=== PATIENT | female | born 1985 | race Caucasian/White ===

== ENCOUNTER → 2021-07-13 10:49 | Outpatient (CLI) | payer OTHER, SELFPAY ==
[2021-07-13 11:06] LABS: Absolute Lymphocyte Count 1.67 X10^3/uL (0.83-4.51); Absolute Neutrophil Count 7.7 X10^3/uL (2.0-7.7); Basophil# 0.06 X10^3/uL; Basophil% 0.6 % (0-1); Eosinophil# 0.15 X10^3/uL; Eosinophils% 1.4 % (0-5); Hematocrit 37.3 % (37-47); Hemoglobin 12.5 g/dL (12.0-15.0); Lymphocyte # 1.67 X10^3/ul (0.83-4.51); Lymphocyte % 15.9 % (19-41); Mean Corp Hgb Conc 33.5 g/dL (32-36); Mean Corpuscular Hgb 32.6 pg (27.0-32.0); Mean Corpuscular Volume 97.4 fL (81-99); Mean Platelet Vol. 10.3 fl (6.2-12.0); Monocyte# 0.78 X10^3/uL; Monocyte% 7.4 % (0-10); NRBC Flagged by Analyzer 0 % (0-5); Neutrophil # 7.65 X10^3/uL (2.7-7.7); Neutrophil % 72.7 % (47-70); Platelet Count 189 K/mm3 (150-450); RBC Distribution Width SD 46.2 fl (35.1-43.9); Red Blood Count 3.83 M/mm3 (4.2-5.4); White Blood Count 10.5 K/mm3 (4.4-11.0)
== END ==
PROVIDERS: PCP Nurse Practitioner Family; Referring Provider Obstetrics & Gynecology; Visit Provider Obstetrics & Gynecology
DX: O34.219 Maternal care for unspecified type scar from previous cesarean delivery (principal); Z3A.00 Weeks of gestation of pregnancy not specified
CPT/HCPCS: 36415; 85025; 86850; 86900; 86901

== ENCOUNTER → 2021-07-26 10:12 | Outpatient (CLI) | payer OTHER, SELFPAY | PROVIDERS: PCP Nurse Practitioner Family; Visit Provider Nurse Practitioner Women's Health | DX: Z34.93 Encounter for supervision of normal pregnancy, unspecified, third trimester (principal) | CPT/HCPCS: 87086; 87088 ==

== ENCOUNTER 2021-08-25 09:46 | Outpatient (CLI) | payer OTHER, SELFPAY ==
--- NOTE | 2021-08-25 09:48 | US_ITS ---
STUDY: SECOND AND THIRD TRIMESTER OBSTETRICAL ULTRASOUND - LIMITED REASON FOR EXAM: Female, 36 years old placenta follow-up LMP: 12/12/2020. PRIOR ULTRASOUND: None. TECHNIQUE: Transabdominal and Transvaginal TECHNICAL QUALITY: Adequate. FINDINGS: There is a single intrauterine fetus. The fetus is in a cephalic presentation. There is demonstrated cardiac activity with a heart rate of 148 bpm. There is decreased amniotic fluid volume consistent with oligohydramnios. The largest amniotic fluid pocket measures 2.6 cm. The amniotic fluid index (KAR) is 4.8 cm. The placenta is posterior in location and is not low lying. The tip of the placenta is a 2.4 cm away from the internal os. There are Grade 2 placental changes. The cervix measures 4.74 cm in length. BIOMETRY: Age by LMP: 36 weeks, 4 days. CONSTANCE by LMP: 09/18/2021. US/OB Limited (No Biometrics) IMPRESSION: Decreased amniotic fluid index. The referring physician was notified. Electronically Signed: Phillip Garay MD at 13:32 EST , Service support ,
== END 2021-08-25 23:59 | disposition short-term general hospital (02) ==
PROVIDERS: PCP Physician Assistant; Referring Provider Obstetrics & Gynecology; Visit Provider Obstetrics & Gynecology
DX: O44.02 Complete placenta previa NOS or without hemorrhage, second trimester (principal); Z3A.00 Weeks of gestation of pregnancy not specified
CPT/HCPCS: 76815; 76817; J2405

== ENCOUNTER 2021-08-25 10:59 | Inpatient (IN) | payer OTHER, SELFPAY ==
[2021-08-25] VITALS (15 sets, daily range): BP systolic 114–140; BP diastolic 71–91; PULSE 71–95; RESP 12–18; TEMP 36.1–36.6; O2SAT 94–100; BMI 32.5
[2021-08-25] MEDS: Lactated Ringers 1,000 ML 150 ML IV (12:10)
[2021-08-25 12:38] LABS: Absolute Lymphocyte Count 2.07 X10^3/uL (0.83-4.51); Absolute Neutrophil Count 8.6 X10^3/uL (2.0-7.7); Basophil# 0.05 X10^3/uL; Basophil% 0.4 % (0-1); Eosinophil# 0.12 X10^3/uL; Hematocrit 35.1 % (37-47); Hemoglobin 11.7 g/dL (12.0-15.0); Lymphocyte # 2.07 X10^3/ul (0.83-4.51); Lymphocyte % 16.4 % (19-41); Mean Corp Hgb Conc 33.3 g/dL (32-36); Mean Corpuscular Hgb 31.7 pg (27.0-32.0); Mean Corpuscular Volume 95.1 fL (81-99); Mean Platelet Vol. 10.1 fl (6.2-12.0); Monocyte# 1.48 X10^3/uL; Monocyte% 11.7 % (0-10); NRBC Flagged by Analyzer 0 % (0-5); Neutrophil # 8.62 X10^3/uL (2.7-7.7); Neutrophil % 68.4 % (47-70); Platelet Count 225 K/mm3 (150-450); RBC Distribution Width SD 45.2 fl (35.1-43.9); Red Blood Count 3.69 M/mm3 (4.2-5.4); White Blood Count 12.6 K/mm3 (4.4-11.0)
--- NOTE | 2021-08-25 13:05 | PCM.HP.STD ---
HPI - General General Date of Admission: 08/25/21 HPI Narrative MARGIE HATHAWAY, is a 36 F who presents for repeat section. She was diagnosed with a previa on 08/03/2021 and today scan shows resolution but with Oligohydramnios of 4.6 cm. She received 2 dosed of celestone this week. The plan is for a repeat section today. [facility] Medical History Complete placenta previa nos or without hemorrhage, second trimester Home Medications vitamin#30 30 mg iron-10 mg iron-folic acid 1 mg-omg3 capsule cap PO 04/12/21 [History Last Taken Unknown] betamethasone acetate and sodium phos 6 mg/mL suspension for injection 12 mg IM ONCE #5 ml 08/17/21 [Rx Last Taken Unknown] Allergy/AdvReac Type Severity Reaction Status Date / Time morphine Allergy Shortness Verified 08/17/21 09:40 of breath hydromorphone HCl AdvReac Itching Verified 08/17/21 09:40 [From Dilaudid] Family History Father Diabetes Mother H/O parathyroid disease Surgical History delivery delivered H/O LEEP History of cholecystectomy Hx of tonsillectomy Social History Smoking Status: Never smoker alcohol intake: never substance use type: does not use caffeine: Yes what type of physical activity do you participate in: none seatbelt use: always do you feel safe at home: Yes additional social history: - Syd- New traveling construction superintendent ROS Constitutional Constitutional: Denies change in weight, fatigue, fever(s), headache(s), poor appetite or weakness Eyes Eyes: Denies blurry vision, change in vision, seeing flashes or spots in vision ENT HEENT: Denies dizziness, headache(s), loss taste/smell or sore throat Cardiovascular Cardiovascular: Denies chest pain, dizziness, dyspnea, irregular heart rhythm, leg edema, palpitations, rapid heart rate or vomiting Respiratory/Chest Respiratory/Chest: Denies chest tightness, cough, dyspnea or breast pain Gastrointestinal Gastrointestinal: Denies abdominal pain, anorexia, constipation, cramping, diarrhea, hemorrhoids, vomiting or weight changes Genitourinary Genitourinary: Denies dysuria, flank pain, genital lesions, genital pain, urinary frequency or urinary urgency Musculoskeletal Musculoskeletal: Denies back pain, difficulty walking, joint pain, limited range of motion, muscle cramps or numbness Integumentary Integumentary: Denies lesions or unusual bruising Neurologic Neurologic: Denies abnormal movements, abnormal speech, dizziness, numbness, seizure-like activity or syncope Psychiatric Psychiatric: Denies anxiety, behavioral changes, change in appetite, change in libido, cognitive impairment, confusion, depression, difficulty concentrating, hallucinations or suicidal thoughts Endocrine Endocrinology: Denies excessive sweating, polydipsia or polyuria Hematologic/Lymphatic Hematologic/Lymphatic: Denies easy bleeding, easy bruising or lymphadenopathy Allergic/Immunologic Allergic/Immunologic: Denies itchy eyes, lip swelling, seasonal rhinorrhea, rhinitis, throat swelling, tongue swelling, eczemia, wheezing or asthma Vital Signs Vital Signs Vital Signs: Weight Weight: 202 lb Body Mass Index (BMI) 32.5 Physical Exam Const alert, oriented x3, no apparent distress and healthy appearing General Appearance: cooperative; Negative for anxious HEENT normocephalic Face and Sinus: normal facial exam Eyes EOMs intact bilaterally and no scleral icterus General Eye: normal appearance of both eyes Neck full ROM and supple Lymph Lymphatic: no lymphadenopathy noted Chest Chest: abnormal inspection of the chest Resp normal respiratory effort Effort and Inspection: able to speak in complete sentences Cardio regular rate GI soft to palpation and non-tender Inspection: gravid Palpation: soft; Negative for tender external exam normal Amniotic Fluid: ROM+plus Back/Spine no CVA tenderness Extremity normal to inspection, full ROM and no clubbing, cyanosis or edema General Extremity: Negative for calf tenderness or edema Skin Lesions: no lesions Rashes: no rashes Psych mental status grossly normal Results Lab / Micro Data Result Diagrams: 08/25/21 12:10 Labs: Laboratory Results - last 24 hr 08/25/21 12:10: WBC 12.6 H, RBC 3.69 L, Hgb 11.7 L, Hct 35.1 L, MCV 95.1, MCH 31.7, MCHC 33.3, RDW Std Deviation 45.2 H, RDW Coeff of Alyce 13.0, Plt Count 225, MPV 10.1, Immature Gran % (Auto) 2.100 H, Neut % (Auto) 68.4, Lymph % (Auto) 16.4 L, [place] % (Auto) 11.7 H, Eos % (Auto) 1.0, Baso % (Auto) 0.4, Absolute Neuts (auto) 8.6 H, Absolute Lymphs (auto) 2.07, Nucleated RBC % 0 08/25/21 12:50: Ur Drug Screen Comment Assessment & Plan Assessment/Plan (1) Oligohydramnios: PLAN: plan for repeat section today. Plan to use exparel + bupivocaine as a block to help with post op pain control. (2) Previous section complicating : (3) Supervision of high risk , antepartum:
[2021-08-25 13:15] LABS: Amphetamine Urine VISTA NEGATIVE (<1000 ng/mL); Barbiturate Urine VISTA NEGATIVE (< 200 ng/mL); Benzodiazepine Urine VISTA NEGATIVE (< 200 ng/mL); Cocaine Urine VISTA NEGATIVE (< 300 ng/mL); Ecstacy Urine VISTA NEGATIVE (< 500 ng/mL); Methadone Urine VISTA NEGATIVE (< 300 ng/mL); PCP Urine VISTA NEGATIVE (< 25 ng/mL); THC Urine VISTA NEGATIVE (< 50 ng/mL); Vista UDS pH Range 7
[2021-08-25 13:31] LABS: Rubella IgG Reactive (Nonreactive); Syphilis Antibodies Non-reactive
[2021-08-25 13:41] LABS: HIV - WCH Non-Reactive (Nonreactive); Hepatitis B Surface Antigen Non-Reactive (Nonreactive); Hepatitis C Antibody Non-Reactive (Nonreactive)
[2021-08-25] MEDS: Acetaminophen 500 MG Tablet 1000 MG PO (15:05)
[2021-08-25] MEDS: Lactated Ringers 1,000 ML 999 ML IV (15:06)
[2021-08-25 15:12] LABS: Chlamydia Trachomatis by PCR Negative (Negative); Neisserai gonorrhoeae by PCR Negative (Negative); Probe Check PASS; Sample Adequacy Control PASS; Specimen Processing Control PASS
[2021-08-25] MEDS: Sodium Citrate/Citric Acid 30 ML UDC PO (16:10)
[2021-08-25] MEDS: Cefazolin 2 GM in 0.9% Normal Saline 100 ML IV (16:15)
[2021-08-25] MEDS: Bupivacaine 0.25% 30 ML Vial OPERA.SITE (17:30)
[2021-08-25] MEDS: BUPIVACAINE LIPOSOME/PF 20 ML VIAL OPERA.SITE (17:30)
--- NOTE | 2021-08-25 17:34 | OP.PCM_ITS ---
Assessment & Plan (1) Previous section complicating : COMMENT: marginal placenta previa. discussed with patient we will not p jayde nino for a home . CS scheduled (2) Oligohydramnios: (3) Supervision of high risk , antepartum: COMMENT: PRR (sp labs) CONSTANCE 09/18/21 Boy PC:Bernard Nina Naomi, [place].Spouse:Syd Maternal Data Information CONSTANCE Calculator Estimated Delivery Date Method Current WG Current Estimate 09/18/21 LMP (Uncertain) 36w 4d Details Operative Information Date of Procedure: 08/25/21 Pre-Operative Diagnosis: @ 36 weeks, Oligohydramnios, prior section, desires permanent sterilization Post-Operative Diagnosis: @ 36 weeks, Oligohydramnios, prior section, desires permanent sterilization Indications for : Repeat Elective Classification: Scheduled Procedure Type: tubal ligation Type of Anesthesia: Epidural Special Medications: Exparel and bupivacaine intramuscular and subfascial injection Antibiotic Given: Ancef 2 grams IV x1 Estimated Blood Loss: 500cc Fluids Replaced: 1000cc Findings Description of Procedure: The patient is a 36 y/o with one prior section and and KAR of 4.8 (oligohydramnios) she presented for repeat . Spinal anesthesia was placed without difficulty. Song catheter was placed. The patient was placed in the dorsal supine position with leftward tilt. Patient was prepped and draped in the normal sterile fashion. Pfannenstiel skin incision was made with the scalpel and carried through to the underlying layer of fascia with the scalpel. Fascia was nicked in the midline and the incision extended laterally. The rectus bellies were dissected off superiorly and inferiorly with out complication both sharply and bluntly. The peritoneum was entered digitally. The incision was stretched and a low transverse uterine incision was made with the scalpel. The 's head was delivered atraumatically followed by the anterior and posterior shoulders without complication the rest of the delivered. The cord was clamped and cut and the infant was handed off to awaiting nurse. The placenta was delivered spontaneously immediately following and was noted to be intact and have a three-vessel cord. The uterus was exteriorized cleared of all clots and debris, and the incision was closed in a double layer closure using #1 Monocryl. The ovaries and fallopian tubes were noted to be within normal limits. The tubal ligation procedure was performed using the usual parkland method and 2-0 plain gut suture. The tubal portions were passed off for pathology analysis. The uterus was returned to the maternal abdomen and gutters were cleared of all clots and debris. The peritoneum was closed with 3-0 Monocryl in a running fashion. Gloves were changed prior to fascial closure. The rectus muscles were injected with a 60cc mixture of bupivacaine and Exparel. The Fascia was closed with 0 PDS stratafix suture in a running fashion. Subcutaneous tissue was copiously irrigated and the skin was closed with 3-0 Monocryl in a subcuticular fashion. Mepilex dressing was applied without complication. Patient was taken to recovery in stable condition. It was discussed with the patient that based on the clinical information obtained during this encounter, combined with her history, at this time I would recommend for future deliveries if further pregnancies are desired. Presentation: Positive for Vertex Amniotic Membrane Rupture Type: Artificial Amniotic Fluid Description: Clear Placental Delivery Description: Manual Removal Placenta Disposition: [facility] Cord Vessel Description: 3 Vessels Cord Entanglement: None Infant A Gender: Male (1 minute): 8 (5 minute): 9 Delayed Cord Clamping: Yes Complications Risks of Surgery Discussed w/Patient: Injury to surrounding structure(s) including bowel and bladder and Availability of other non-permanent control options Multi Select Codes Urinary/Genital Urinary/Genital CPT Codes: 23947 C/S+TL
[2021-08-25] MEDS: Oxytocin 30 units/NS 500 ml 30 UNITS/500 ML IV.SOLN 167 UNITS IV (17:40)
--- NOTE | 2021-08-25 17:45 | FALS_PTH ---
PATIENT: MARGIE HATHAWAY LOC: [facility] U#:[id number] AGE/SX: 36/F ROOM: WP007 RE08/25/[address]: Dr. Yina Marcus DO : 1985 BED: 1 DIS: 08/28/2021 SPEC #: [id number] RECD: 08/25/21 18:36 STATUS: SRAVANI GERONIMO #: [id number] MATILDE: 08/25/21 17:[address]: Yina Marcus DEPT: SURGICAL PATHOLOGY RECD BY: Shelia Johnson ENTERED: 08/28/21 09:41 SP TYPE: FALL TUBES OTHR DR: Russell Mulligan PA-C Tissues: Fallopian tube Procedures: Surgery Specimen Level II HEADER OPERATION: Tubal ligation PRE-OP DIAGNOSIS: Sterilization TISSUE SUBMITTED: Fallopian tubes MICROSCOPIC DIAGNOSIS Bilateral fallopian tubes, salpingectomy: Bilateral fallopian tubes, no pathologic diagnosis. SJ:gt 08/29/2021 MICROSCOPIC DESCRIPTION Slides are reviewed. GROSS DESCRIPTION Received in fixative is one container labeled with the patient's name and designated bilateral fallopian tubes. The specimen consists of two fallopian tubes with an average length of 2.5 cm and has an average diameter of 0.7 cm. Both fallopian tubes have normal fimbriated ends. No mass lesions are identified. Project Program Manager sections are submitted in two cassettes as follows: 1 - one fallopian tube, 2??the other fallopian tube. / AM:gt 08/28/2021 TC:4 CPT: 82116 x2
[2021-08-25] MEDS: Ketorolac 30 MG/ML Syringe IV (18:15)
--- NOTE | 2021-08-25 19:24 | NURSING ---
Report given to Roselia Mora RN.
[2021-08-25] MEDS: oxyCODONE 5 MG Tablet PO (19:50)
[2021-08-25] MEDS: Methylergonovine 0.2 MG/ML Ampul IM (20:05)
[2021-08-25 20:06] LABS: Pathology Specimen OB SEE PATHOLOGY REPORT
[2021-08-25] MEDS: Carboprost Tromethamine 250 MCG/ML Ampul IM ×3 (20:30→21:33)
[2021-08-25] MEDS: Oxytocin 30 units/NS 500 ml 30 UNITS/500 ML IV.SOLN 999 UNITS IV (20:47)
[2021-08-25] MEDS: miSOPROStol 200 MCG Tablet 1000 MCG RC ×2 (21:15)
[2021-08-25 21:23] LABS: Absolute Lymphocyte Count 2.89 X10^3/uL (0.83-4.51); Absolute Neutrophil Count 13.9 X10^3/uL (2.0-7.7); Basophil# 0.06 X10^3/uL; Basophil% 0.3 % (0-1); Eosinophil# 0.15 X10^3/uL; Eosinophils% 0.8 % (0-5); Hematocrit 31.4 % (37-47); Hemoglobin 10.5 g/dL (12.0-15.0); Lymphocyte # 2.89 X10^3/ul (0.83-4.51); Lymphocyte % 15.3 % (19-41); Mean Corp Hgb Conc 33.4 g/dL (32-36); Mean Corpuscular Hgb 31.6 pg (27.0-32.0); Mean Corpuscular Volume 94.6 fL (81-99); Mean Platelet Vol. 10.3 fl (6.2-12.0); Monocyte# 1.68 X10^3/uL; Monocyte% 8.9 % (0-10); NRBC Flagged by Analyzer 0 % (0-5); Neutrophil # 13.86 X10^3/uL (2.7-7.7); Neutrophil % 73.4 % (47-70); POSITIVE DIFFERENTIAL YES; Platelet Count 204 K/mm3 (150-450); RBC Distribution Width CV 12.9 % (11.6-14.6); RBC Distribution Width SD 44.6 fl (35.1-43.9); Red Blood Count 3.32 M/mm3 (4.2-5.4); White Blood Count 18.9 K/mm3 (4.4-11.0)
[2021-08-25 21:29] LABS: International Normalized Ratio 1.1; Partial Thromboplast Time 29.8 Seconds (24.1-36.2); Prothrombin Time (Protime)PT. 13.8 SECONDS (11.7-14.9)
[2021-08-25 21:44] LABS: Differential Indicated SCAN CRITERIA MET
[2021-08-25 22:00] LABS: Hematocrit 26.6 % (37-47); Hemoglobin 8.7 g/dL (12.0-15.0)
[2021-08-25 22:00] LABS: Fibrinogen 384 mg/dl (203-444)
[2021-08-25 22:08] LABS: Differential Comment SCANNED
[2021-08-25] MEDS: Lactated Ringers 1,000 ML 100 ML IV (22:10)
--- NOTE | 2021-08-25 22:15 | PCM.OPRPT ---
Report of Operation Date of Procedure: 08/25/21 Pre-Operative Diagnosis: hemorrhage Post-Operative Diagnosis: hemorrhage Surgery/Procedure Performed:: dilation and curettage Surgeon: Neo Type of Anesthesia: MAC Specimen's removed: Blood clots Estimated Blood Loss (mL): 1500 cc Description of Procedure: Nursing called with concerns for bleeding after surgery. She has a total of 650cc of blood on a pad on a weight as I entered the room. Upon examining the uterus there was noted to be clots within the os. the cervix was dilated only 2 cm. The decision was made to bring her to the OR for a Dilation and curettage with placement of Barkeri balloon. The patient's legs were placed in stirrups the perineum was prepped and draped in the usual sterile fashion. The vault was also prepped with Betadine. A weighted speculum was placed in the vagina. The cervix was grasped with a long Allis clamp. Sharp curettage was performed removing another approximately 300 cc of blood and clot. The suction device was attached and a suction curettage was then performed. At this time a total of 1500 cc was noted to be lost from the time of surgery. A Jose balloon was placed into the uterus and insufflated with approximately 300 cc of normal saline. An Ultrasound was performed and the Jose balloon was noted to be in the lower uterine segment. Slight oozing was continued to be noted around the Jose balloon. An attempt was made to replace the balloon to the fundus by removing some of the fluid and pushing the balloon farther up to the fundus. This was done under ultrasound guidance as the fluid was reinflated into the balloon and the balloon again pushed its way down into the lower uterine segment were bleeding continued. The balloon was removed completely at this time and uterine massage was performed. Ultrasound showed a thin endometrium with very little particulate left within the uterine cavity. At this time bleeding ceased on its own. During this procedure the patient was given 2 doses of TXA, 1000 mg of Cytotec, and several doses of Hemabate. She was also given a dose of Methergine. 2 bags of Pitocin were used during the procedure. Patient's hemoglobin started at 10.5 as we entered the operating room and after the procedure was finished and the bleeding was stopped her hemoglobin was at 8.7. Admit VTE Documentation VTE Present on Admission: Yes VTE Mechan Device Prophylaxis: SCD's VTE Pharm Prophylaxis ordered?: Yes Multi Select Codes Urinary/Genital Urinary/Genital CPT Codes: 55516 Non-ob D&C
[2021-08-26] VITALS (13 sets, daily range): BP systolic 111–137; BP diastolic 59–89; PULSE 82–113; RESP 14–20; TEMP 36.3–36.6; O2SAT 16–99
--- NOTE | 2021-08-26 01:04 | NURSING ---
1944- Large clot expressed with fundal massage. Pt continued to have small clots with small amount of bleeding with continued fundal massage but fundus is firm. 1954- Dr Larson notified of bleeding and firm fundus, but vitals stable, and pt's complaints of severe back pain. Order received for methergine x1. 2004- Methergine given x1. Fundus still firm and small clots noted. 2022- Medium sized clots noted and fundus firm, pt's back pain increased. Call placed to Dr Larson, pt status update given,new order received for hemabate and md states she is on her way. 2029- Hemabate given x1. 2037- Dr Larson in room to assess pt, pads weighed at this time. 1485 in blood loss on weighed pads. Dr Larson made decision for pt to go to OR for D&C. 2038- Dr Tang notified. 2046- Pt in transferred to OR. Another 148 in blood loss from pad in OR. 2099- Second IV started in right hand and labs drawn. 2114- Cytotec 1000mcg given rectally by . 2116- Hemabate given x1. 2120- Surgery team called [facility] of hysterectomy. 2123- Bakri placed by md with 350cc NS. 2132-Hemabate given x1. 2152- CBC drawn. 2154- Fluid drained from Bakri for md to reposition. Then filled with 180cc NS. 2199- Bakri removed by . 2209- Surgery end time, md left OR, pt transferred back to room 7.
--- NOTE | 2021-08-26 01:34 | NURSING ---
5- Large clot expressed with fundal massage. Pt continued to have small clots with small amount of bleeding with continued fundal massage but fundus is firm. 1954- Dr Larson notified of bleeding and firm fundus, but vitals stable, and pt's complaints of severe back pain. Order received for methergine x1. 2004- Methergine given x1. Fundus still firm and small clots noted. 2022- Medium sized clots noted and fundus firm, pt's back pain increased. Call placed to Dr Larson, pt status update given,new order received for hemabate and md states she is on her way. 2029- Hemabate given x1. 2037- Dr Larson in room to assess pt, pads weighed at this time. 1485 in blood loss on weighed pads. Dr Larson made decision for pt to go to OR for D&C. 2038- Dr Tang notified. 2046- Pt is transferred to OR. Another 148 in blood loss from pad in OR. Second bag of pitocin started. 2100- Second IV started in right hand and labs drawn. 2101- TXA given by anesthesia. 2114- Cytotec 1000mcg given rectally by . 2116- Hemabate given x1. 2120- Surgery team called [facility] of hyste[facility]. 2123- Bakri placed by with 350cc NS. 2125- Order placed for 2 units of PRBC's on hold. 2132-Hemabate given x1. 2137- TXA and Hespan given by anesthesia. 2152- CBC drawn. 2154- Fluid drained from Bakri for md to reposition. Then filled with 180cc NS. 2199- Bakri removed by . 2209- Surgery end time, md left OR, pt transferred back to room 7.
[2021-08-26] MEDS: Acetaminophen 500 MG Tablet 1000 MG PO ×4 (03:03→21:44)
[2021-08-26] MEDS: Lactated Ringers 1,000 ML 100 ML IV ×2 (05:07→08:34)
[2021-08-26] MEDS: 0.9% Saline Lock 10 ML Syringe IV ×2 (05:11→21:10)
[2021-08-26 06:22] LABS: Hematocrit 22.8 % (37-47); Hemoglobin 7.6 g/dL (12.0-15.0); Mean Corp Hgb Conc 33.3 g/dL (32-36); Mean Corpuscular Hgb 31.8 pg (27.0-32.0); Mean Corpuscular Volume 95.4 fL (81-99); Mean Platelet Vol. 10.1 fl (6.2-12.0); Platelet Count 165 K/mm3 (150-450); RBC Distribution Width SD 44.9 fl (35.1-43.9); Red Blood Count 2.39 M/mm3 (4.2-5.4); White Blood Count 13.2 K/mm3 (4.4-11.0)
[2021-08-26] MEDS: Ketorolac 30 MG/ML Syringe IV ×2 (08:20→14:30)
--- NOTE | 2021-08-26 10:40 | NURSING ---
Pt first ambulation delayed due to pt hemorrhaging 08/25 and being taken back to the OR.
--- NOTE | 2021-08-26 11:21 | PCM.PN.OB ---
Subjective Subjective Patient doing well without complaints. Tolerating PO. Ambulating to wheel chair. Feeding well. Denies chest pain, shortness of breath, calf pain/swelling, fevers, chills, lightheadedness. Pt states that she feels hot, however she is in special care nursery when being interviewed and the room is warm. Objective Data Objective Data Vital Signs: Vital Signs Temp Pulse Resp BP Pulse Ox 97.9 F 111 H 16 113/77 95 08/26/21 08:00 08/26/21 08:00 08/26/21 08:00 08/26/21 08:00 08/26/21 08:00 Oxygen Delivery Method Room Air Weight: 202 lb Body Mass Index (BMI) 32.5 Intake & Output: Intake and Output for Last 24 Hours 08/24/21 08/25/21 08/26/21 23:59 23:59 23:59 Intake Total 3270 / 3270 1308.33 / 1308.33 Output Total 900 / 900 3050 / 3050 Balance 2370 / 2370 -1741.67 / -1741.67 Lab / Micro Data Result Diagrams: 08/26/21 06:10 Labs: Laboratory Results - last 24 hr 08/25/21 12:10: WBC 12.6 H, RBC 3.69 L, Hgb 11.7 L, Hct 35.1 L, MCV 95.1, MCH 31.7, MCHC 33.3, RDW Std Deviation 45.2 H, RDW Coeff of Alyce 13.0, Plt Count 225, MPV 10.1, Immature Gran % (Auto) 2.100 H, Neut % (Auto) 68.4, Lymph % (Auto) 16.4 L, [place] % (Auto) 11.7 H, Eos % (Auto) 1.0, Baso % (Auto) 0.4, Absolute Neuts (auto) 8.6 H, Absolute Lymphs (auto) 2.07, Nucleated RBC % 0 08/25/21 12:10: Syphilis Total Ab Non-reactive, Rubella IgG Antibody Reactive 08/25/21 12:10: Blood Type O NEGATIVE, Antibody Screen NEGATIVE 08/25/21 12:10: Hep Bs Antigen Non-Reactive, Hepatitis C Antibody Non-Reactive, HIV 1&2 Antibody Non-Reactive 08/25/21 12:10: Crossmatch See Detail 08/25/21 12:50: Chlam trachomat DNA PCR Negative, N.gonorrhoeae DNA (PCR) Negative, Group B Strep DNA Cancelled, Specimen Comment Cancelled 08/25/21 12:50: Urine Opiates Screen NEGATIVE, Urine Methadone Screen NEGATIVE, Ur Barbiturates Screen NEGATIVE, Ur Phencyclidine Scrn NEGATIVE, Ur Amphetamines Screen NEGATIVE, U Methamphetamin-MDMA NEGATIVE, U Benzodiazepines Scrn NEGATIVE, Urine Cocaine Screen NEGATIVE, U Cannabinoids Screen NEGATIVE, Ur Drug Screen Comment 08/25/21 21:00: WBC 18.9 H, RBC 3.32 L, Hgb 10.5 L, Hct 31.4 L, MCV 94.6, MCH 31.6, MCHC 33.4, RDW Std Deviation 44.6 H, RDW Coeff of Alyce 12.9, Plt Count 204, MPV 10.3, Immature Gran % (Auto) 1.300 H, Neut % (Auto) 73.4 H, Lymph % (Auto) 15.3 L, [place] % (Auto) 8.9, Eos % (Auto) 0.8, Baso % (Auto) 0.3, Absolute Neuts (auto) 13.9 H, Absolute Lymphs (auto) 2.89, Nucleated RBC % 0, Differential Comment SCANNED, Diff Path Review December08/25/21 21:00: PT 13.8, INR 1.1, APTT 29.8, Fibrinogen 384 08/25/21 21:50: Hgb 8.7 L, Hct 26.6 L 08/26/21 06:10: WBC 13.2 H, RBC 2.39 L, Hgb 7.6 L, Hct 22.8 L, MCV 95.4, MCH 31.8, MCHC 33.3, RDW Std Deviation 44.9 H, RDW Coeff of Alyce 13.0, Plt Count 165, MPV 10.1 08/26/21 06:10: Screen NEGATIVE, Baby's Blood Type A POSITIVE, Baby's JOÃO NEGATIVE Micro: Microbiology 08/25/21 12:00 Nasal Secretion SARS-CoV-2 Antigen (Rapid) - Final ROS Constitutional Constitutional: Reports systems reviewed and no addt'l complaints, except as documented Cardiovascular Cardiovascular: Denies chest pain, dizziness, dyspnea or irregular heart rhythm Respiratory/Chest Respiratory/Chest: Denies cough, pain on inspiration or shortness of breath at rest Gastrointestinal Gastrointestinal: Denies abdominal pain, nausea or vomiting Genitourinary Genitourinary: Denies burning urination Musculoskeletal Musculoskeletal: Denies muscle cramps, muscle spasms or muscle weakness Neurologic Neurologic: Denies confusion, dizziness, headache(s) or lack of coordination Psychiatric Psychiatric: Denies anxiety, behavioral changes or depression Physical Exam HEENT normocephalic Resp normal respiratory effort and normal air movement GI soft to palpation, non-tender and non-distended Rectal Exam: other Other Details: Incision is clean, dry, and intact no CVA tenderness Extremity normal to inspection General Extremity: edema bilateral (trace ) Assessment & Plan (1) Postoperative complication of section: COMMENT: postpratum hemorrhage, requiring dilation and curettage - improving and hemodynamically stable (class 2 hemorrhage) - blood pressure slightly lower, pulse slightly higher than baseline, patient however feels well and has no complaints of shortness of breath, fatigue, or dizziness. PLAN: . s/p LTCS PPD #1 and take back for pp hemorrhage D&C 1. routine post care 2. breast feeding- support given 3. rh positive 4. rubella immune 5. plan to conservatively monitor and support with fluids and rest. no need for blood transfusion at this time. Bleeding slowed to a trickle
[2021-08-26] MEDS: Senna/Docusate Sodium 1 Tablet PO (12:26)
[2021-08-26] MEDS: Prenatal Vits Tablet 1 TABLET PO (12:26)
[2021-08-26] MEDS: Heparin Injection (Vial) 5,000 UNIT/ML VIAL 5000 UNIT SC (20:16)
[2021-08-26] MEDS: Ibuprofen 600 MG Tablet PO (20:18)
[2021-08-26] MEDS: Methocarbamol 500 MG Tablet 1000 MG PO (21:44)
--- NOTE | 2021-08-26 21:45 | NURSING ---
pt resting in bed c/o significant burning pain to incision. moaning/facing grimacing noted. pt reports no relief with demerol. called. updated on pt status, fundus firm, lochia scant. new order to give robaxin and offer 1 mg po ativan pt updated on plan of care and agreeable
[2021-08-26] MEDS: LORazepam 1 MG Tablet PO (21:57)
[2021-08-26] MEDS: oxyCODONE 5 MG Tablet PO (23:08)
[2021-08-27 03:24] VITALS: BP 106/50; PULSE 88; RESP 16; TEMP 35.9; O2SAT 96
[2021-08-27] MEDS: Acetaminophen 500 MG Tablet 1000 MG PO ×4 (03:30→22:16)
[2021-08-27] MEDS: Ibuprofen 600 MG Tablet PO ×4 (03:30→21:06)
--- NOTE | 2021-08-27 07:00 | NURSING ---
LATE ENTRY This RN reviewed and agreed with charting by student nurse Blanton
[2021-08-27 08:45] VITALS: BP 122/77; PULSE 70; RESP 16; TEMP 36.6
[2021-08-27] MEDS: Senna/Docusate Sodium 1 Tablet PO (08:53)
[2021-08-27] MEDS: Heparin Injection (Vial) 5,000 UNIT/ML VIAL 5000 UNIT SC ×2 (08:54→21:05)
--- NOTE | 2021-08-27 10:52 | PCM.PN.OB ---
Subjective Subjective Patient doing well without complaints. Tolerating PO. Ambulating and voiding without difficulty. Feeding well. Denies chest pain, shortness of breath, calf pain/swelling, fevers, chills, lightheadedness. last night she had a set back with severe pain attach. She was given ativan + robaxin + demerol 25 mg IV and this helped. She states that she feels better today but is afraid to be discharged today. Her baby is in the nursery with an NG in place and won't be discahrged until at earliest tomorrow or next day. Objective Data Objective Data Vital Signs: Vital Signs Temp Pulse Resp BP Pulse Ox 96.6 F L 88 16 106/50 L 96 08/27/21 03:24 08/27/21 03:24 08/27/21 03:24 08/27/21 03:24 08/27/21 03:24 Oxygen Delivery Method Room Air Weight: 202 lb Body Mass Index (BMI) 32.5 Intake & Output: Intake and Output for Last 24 Hours 08/25/21 08/26/21 08/27/21 23:59 23:59 23:59 Intake Total 3270 / 3270 1451.66 / 1451.66 Output Total 900 / 900 6000 / 6000 Balance 2370 / 2370 -4548.34 / -4548.34 Lab / Micro Data Result Diagrams: 08/26/21 06:10 Micro: Microbiology 08/25/21 12:00 Nasal Secretion SARS-CoV-2 Antigen (Rapid) - Final ROS Constitutional Constitutional: Reports systems reviewed and no addt'l complaints, except as documented Cardiovascular Cardiovascular: Denies chest pain, dizziness, dyspnea or irregular heart rhythm Respiratory/Chest Respiratory/Chest: Denies cough, pain on inspiration or shortness of breath at rest Gastrointestinal Gastrointestinal: Denies abdominal pain, nausea or vomiting Genitourinary Genitourinary: Denies burning urination Musculoskeletal Musculoskeletal: Denies muscle cramps, muscle spasms or muscle weakness Neurologic Neurologic: Denies confusion, dizziness, headache(s) or lack of coordination Psychiatric Psychiatric: Denies anxiety, behavioral changes or depression Physical Exam HEENT normocephalic Resp normal respiratory effort and normal air movement GI soft to palpation, non-tender and non-distended Rectal Exam: other Other Details: Incision is clean, dry, and intact no CVA tenderness Extremity normal to inspection General Extremity: edema bilateral (trace ) Assessment & Plan (1) Postoperative complication of section: COMMENT: postpratum hemorrhage, requiring dilation and curettage - improving and hemodynamically stable (class 2 hemorrhage) - blood pressure slightly lower, pulse slightly higher than baseline, patient however feels well and has no complaints of shortness of breath, fatigue, or dizziness. PLAN: s/p LTCS PPD # 2 and post op day #2 d&C for hemorrhage - hemodynamically stable but still has pain issues -plan for dc to home tomorrow with 5 pills of ativan to take before bedtime for severe unrelenting pain that is not relieved with robaxin, percocet, or motrin. 1. routine post care 2. breast feeding- support given 3. rh positive 4. rubella immune
--- NOTE | 2021-08-27 10:55 | PCM.DC ---
Discharge Instructions Diet Discharge Diet: No restrictions Activity Discharge Activity: May Not Drive (for 2 weeks or while taking narcotic pain medications.), May Shower and May Take a Tub Bath (in 7 days.) May resume sexual activity in: 4-6 weeks Weight Bearing Status: Full weight bearing Lifting Restrictions: 20 pounds Dressing / Incision Call your doctor if your incision/area has: Continuous Slow Oozing, Sudden Increased Bleeding, Increased Pain/ Swelling, Increased Redness and Foul Smelling Discharge Call your doctor if you observe: Fever of 101 or Higher and Using more than 1 pad per hour Suture Line Care: Avoid Pulling/Pushing and Avoid Pinching/Bending Cleanse incision/area with: Soap & Water and Keep Dressing Clean & Dry Follow Up Care Please Follow Up With: Yina Marcus DO When: Call [phone] to make an appointment for an incision check in 1-2 weeks. Test Results: Test results from this visit will be discussed in further detail at your follow-up appointment, if applicable. Discharge Plan Admission Admit Date/Time: 08/25/21 10:59 Primary Reason for Your Visit: section Attending Provider: Yina Marcus Primary Care Provider: Russell Mulligan Discharge Orders/Prescriptions Prescriptions: New oxycodone-acetaminophen [Percocet] 5-325 mg tablet 1 tab PO Q4H PRN (Reason: pain) 7 Days Qty: 30 RF: 0 ibuprofen 800 mg tablet 800 mg PO Q8H PRN (Reason: pain) 7 Days Qty: 30 RF: 0 methocarbamol 750 mg tablet 750 mg PO Q6H PRN (Reason: muscle pain ) 7 Days Qty: 30 RF: 0 lorazepam [Ativan] 0.5 mg tablet 0.5 mg PO QHS PRN (Reason: anxiety) 5 Days Qty: 5 RF: 0 Continued PNV #[id number] 30 mg iron-10 mg iron-1 mg capsule 1 cap PO DAILY RF: 0 Discontinued betamethasone acet,sod phos [Celestone Soluspan] 6 mg/mL suspension 12 mg IM ONCE RF: 0 Referrals / Follow Up: Russell Mulligan DO [Primary Care Provider] - Disposition Disposition (needs filled in before D/C Order can be placed): Home, Self Care
[2021-08-27 14:54] VITALS: BP 125/71; PULSE 106; RESP 16; TEMP 36.6
[2021-08-27] MEDS: Prenatal Vits Tablet 1 TABLET PO (22:15)
[2021-08-27 22:17] VITALS: BP 129/73; PULSE 102; RESP 18; TEMP 36.6; O2SAT 98
[2021-08-28] MEDS: Ibuprofen 600 MG Tablet PO ×3 (03:24→16:33)
[2021-08-28] MEDS: Acetaminophen 500 MG Tablet 1000 MG PO ×3 (03:25→16:32)
[2021-08-28 03:29] VITALS: BP 124/61; PULSE 90; RESP 16; TEMP 36.6; O2SAT 100
--- NOTE | 2021-08-28 07:54 | PCM.PN.OB ---
Subjective Subjective Patient doing well without complaints. Tolerating PO. Ambulating and voiding without difficulty. Pumping, Baby SCN and doing well. Denies chest pain, shortness of breath, calf pain/swelling, fevers, chills, lightheadedness. Objective Data Objective Data Vital Signs: Vital Signs Temp Pulse Resp BP Pulse Ox 97.9 F 90 16 124/61 H 100 08/28/21 03:29 08/28/21 03:29 08/28/21 03:29 08/28/21 03:29 08/28/21 03:29 Oxygen Delivery Method Room Air Weight: 202 lb Body Mass Index (BMI) 32.5 Intake & Output: Intake and Output for Last 24 Hours 08/26/21 08/27/21 08/28/21 23:59 23:59 23:59 Intake Total 1451.66 / 1451.66 Output Total 6000 / 6000 Balance -4548.34 / -4548.34 Lab / Micro Data Result Diagrams: 08/26/21 06:10 Micro: Microbiology 08/25/21 12:00 Nasal Secretion SARS-CoV-2 Antigen (Rapid) - Final Physical Exam Const alert and oriented x3 HEENT normocephalic Eyes PERRL Neck full ROM Resp normal respiratory effort GI soft to palpation GI Narrative: FF below U. Dressing dry and intact Palpation: tender other (appropriately) Assessment & Plan (1) Postoperative complication of section: COMMENT: postpratum hemorrhage, requiring dilation and curettage - improving and hemodynamically stable (class 2 hemorrhage) - blood pressure slightly lower, pulse slightly higher than baseline, patient however feels well and has no complaints of shortness of breath, fatigue, or dizziness. (2) Anemia: QUALIFIERS: Anemia type: iron deficiency Iron deficiency anemia type: chronic blood loss Qualified Code(s): D50.0 - Iron deficiency anemia secondary to blood loss (chronic) PLAN: s/p LTCS PPD # 3 1. routine post care 2. breast feeding- support given 3. rh positive 4. rubella nonimmune 5. CBC, if further decrease H&H will proceed with IV venofor 6. Plans hotel discharge today.
[2021-08-28 08:38] VITALS: BP 126/71; PULSE 96; RESP 16; TEMP 36.1; O2SAT 97
[2021-08-28 09:14] LABS: Hematocrit 20.1 % (37-47); Hemoglobin 6.6 g/dL (12.0-15.0); Mean Corp Hgb Conc 32.8 g/dL (32-36); Mean Corpuscular Hgb 32.7 pg (27.0-32.0); Mean Corpuscular Volume 99.5 fL (81-99); Mean Platelet Vol. 9.9 fl (6.2-12.0); Platelet Count 186 K/mm3 (150-450); RBC Distribution Width CV 13.8 % (11.6-14.6); RBC Distribution Width SD 49.1 fl (35.1-43.9); Red Blood Count 2.02 M/mm3 (4.2-5.4); White Blood Count 9.8 K/mm3 (4.4-11.0)
[2021-08-28] MEDS: Heparin Injection (Vial) 5,000 UNIT/ML VIAL 5000 UNIT SC (09:49)
[2021-08-28] MEDS: Senna/Docusate Sodium 1 Tablet PO (09:50)
[2021-08-28 14:15] VITALS: BP 129/79; PULSE 93; RESP 18; TEMP 36.3; O2SAT 98
[2021-08-28 14:16] VITALS: BP 129/76; BP 129/79; BP 130/83; PULSE 104; PULSE 93; PULSE 98
[2021-08-28 14:35] LABS: Hematocrit 21.5 % (37-47); Hemoglobin 7.2 g/dL (12.0-15.0); Mean Corp Hgb Conc 33.5 g/dL (32-36); Mean Corpuscular Hgb 33.2 pg (27.0-32.0); Mean Corpuscular Volume 99.1 fL (81-99); Mean Platelet Vol. 10.2 fl (6.2-12.0); Platelet Count 221 K/mm3 (150-450); RBC Distribution Width CV 13.8 % (11.6-14.6); RBC Distribution Width SD 48.6 fl (35.1-43.9); Red Blood Count 2.17 M/mm3 (4.2-5.4); White Blood Count 11.1 K/mm3 (4.4-11.0)
--- NOTE | 2021-08-28 16:02 | CASEMGMT ---
Social Work Assessment Labor and Delivery Date of referral: 08.27.2021 at 0030 Date of intervention: 08.28.2021, at 1400 Reason for Consult: anxiety, resources ? History obtained from:?Medical records, mother of baby (MOB) Katya Brown, and father of baby (FOB) Syd Brown. ??This designer/writer is the director social welfare for hospital of delivery, and for continuity of care of families admitted to the [facility] this designer/writer is also the assigned director social welfare to the [facility] where baby was transferred ? Household composition:?MOB, FOB, and 4 older children. ?Home situation is reported as adequate. ? ? Patient's parent/guardian status:?PAM is a 38 year old female, to the FOB Syd Brown age 40. ??MOB and FOB share 3 children together and then MOB had 2 children from prior relationship. ?All children live in the home and include: ??Kelle (born 2006), Bernard (born 2006), Kimberly (born 2013), Joshua (born 2015), and baby boy David (born 08.25.2023). ?? ? Medical History:?PAM is G5, P4 to 5 after delivering David. ? care started at 17 weeks at [facility] in [place]. ??Adequate care thereafter. ?Noted in N record that PAM had been looking into midivery care for a home delivery. ?There was reportedly as previa and therefore need to deliver at hospital. ??David born at 36.4 weeks. ?Weight 6 pounds 2 ounces. ?Apgars s8 and 9 at 1 and 5 minutes of life. ?MOB reports the patient's sister Kimberly as a single ventriclar heart. ? ? Educational Status:??PAM is college educated and has her degree in nursing. ??No issues with reading, writing, or learning comprehension. ? Health Care Coverage:?Medical [employer] ? 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 ??No reported issues with finances. ? ? Childcare/Caregiver(s):?MOB and FOB.?? ? Transportation:?No issues.? ? Programs/Agencies Involved:?No reported agency involvement.?? ? Behavioral Health Issues:?MOB denies any history of depression, anxiety, ore mood and anxiety issues. ?MOB and FOB deny any substance use issues, including denial of use of marijuana. ?Maternal drug screen negative at delivery 08.25.2021. ?? ? Family Stressors:?Baby's admission to the [facility] (though MOB reports the experience has been nice at hospital and [facility], and appreciative of being so close to the baby, rather than miles away from home). ?Additional stress is that baby's paternal grandmother 2 weeks ago, ?Paternal grandfather 8 months ago, and the family dog also this year. ?MOB and FOB were caregivers to the and have had limited support even getting the FOB's mom's services arranged. ??MOB reports limited support from her parents and 4 sisters due to MOB's and FOB's choice not to vaccinate for COVID. ??GENI has had time off for his mother's and working with his employer to see how much longer can have off of work to be with MOB and baby. ? ? Support Systems:?MOB reports she and FOB support each other. ?The older children can be a help to MOB at home if needed, as the oldest is almost 16. ?MOB reports to have a friend named Jazlyn who is a support. ?? ? Assessment Met with MOB and FOB together in [facility] hospital room. ?Introduced to self and role. ?MOB and FOB both cooperative and willing to meet with director social welfare. ??MOB talkative, sharing stressors and perspectives on hospital experiences. ?MOB reports to have needed supplies to care for baby at home. ??MOB reports awareness of mood and anxiety disorders. ?Educated parent to the risk for both moms and dads, and in light of significant stressors reported there could be risk present. ?MOB voiced understanding of this. MOB held good eye contact, appropriate affect, smiled at appropriate times, spontaneous in conversation. ?FOB contributed at appropriate times and when elicited. ??Reviewed safe sleeping and shaken baby prevention. ? ? Plan MOB will discharge home. Social work to follow family while on the [facility]. ? Will provide packet on mood and anxiety disorders, with resources for such in case the need arises. ? ?Response to Plan: MOB?does express understanding of proposed plan. ? EDU Gallego 08/28/2021?
--- NOTE | 2021-08-29 07:53 | PCM.DC.SUM ---
Providers Date of Admission: 08/25/21 Primary Care Physician: Dr. Russell Mulligan DO Reason For Visit: LABOR AND DELIVERY Diagnosis Discharge Diagnosis (1) Postoperative complication of section: Status: Acute Code(s): O75.4 - Other complications of obstetric surgery and procedures (2) Anemia: Status: Acute Code(s): D64.9 - Anemia, unspecified Qualifiers: Anemia type: iron deficiency Iron deficiency anemia type: chronic blood loss Qualified Code(s): D50.0 - Iron deficiency anemia secondary to blood loss (chronic) Medications at Discharge Home Medications vitamin#30 30 mg iron-10 mg iron-folic acid 1 mg-omg3 capsule 1 cap PO DAILY 04/12/21 ibuprofen 800 mg PO Q8H PRN 7 Days #30 tab 08/27/21 lorazepam [Ativan] 0.5 mg PO QHS PRN 5 Days #5 tab 08/27/21 methocarbamol 750 mg PO Q6H PRN 7 Days #30 tab 08/27/21 oxycodone-acetaminophen [Percocet] 1 tab PO Q4H PRN 7 Days #30 tab 08/27/21 Hospital Course Procedures - ( delivery) Summary of Care Provided Hospital Course: Patient underwent section with postpartem hemorrhage, managed with hemobate, FE. Return of normal bowel and bladder function. Ambulating, voiding and tolerating PO. Stable for discharge home POD #3. Weight / BMI Weight Weight: 202 lb Body Mass Index (BMI) 32.5 ABG / Lab / Microbiology Data Result Diagrams: 08/28/21 14:15 Laboratory: Laboratory Results - last 24 hr 08/25/21 12:10: Crossmatch See Detail 08/28/21 08:55: WBC 9.8, RBC 2.02 L, Hgb 6.6 L, Hct 20.1 L, MCV 99.5 H, MCH 32.7 H, MCHC 32.8, RDW Std Deviation 49.1 H, RDW Coeff of Alyce 13.8, Plt Count 186, MPV 9.9 08/28/21 14:15: WBC 11.1 H, RBC 2.17 L, Hgb 7.2 L, Hct 21.5 L, MCV 99.1 H, MCH 33.2 H, MCHC 33.5, RDW Std Deviation 48.6 H, RDW Coeff of Alyce 13.8, Plt Count 221, MPV 10.2 Microbiology: Microbiology 08/25/21 12:00 Nasal Secretion SARS-CoV-2 Antigen (Rapid) - Final D/C Instructions Discharge Diet: No restrictions May resume sexual activity in: 4-6 weeks Weight Bearing Status: Full weight bearing Call your doctor if your incision/area has: Continuous Slow Oozing, Sudden Increased Bleeding, Increased Pain/ Swelling, Increased Redness and Foul Smelling Discharge Call your doctor if you observe: Fever of 101 or Higher and Using more than 1 pad per hour Suture Line Care: Avoid Pulling/Pushing and Avoid Pinching/Bending Cleanse incision/area with: Soap & Water and Keep Dressing Clean & Dry Please Follow Up With: Yina Marcus DO When: Call [phone] to make an appointment for an incision check in 1-2 weeks. Meaningful Use Info Meaningful Use Diagnoses (Choose all that apply): None applicable Discharge Plan Admission Admit Date/Time: 08/25/21 10:59 Primary Reason for Your Visit: section Attending Provider: Yina Marcus Primary Care Provider: Russell Mulligan Instructions Patient Instructions: After a Discharge Orders/Prescriptions Prescriptions: New oxycodone-acetaminophen [Percocet] 5-325 mg tablet 1 tab PO Q4H PRN (Reason: pain) 7 Days Qty: 30 RF: 0 ibuprofen 800 mg tablet 800 mg PO Q8H PRN (Reason: pain) 7 Days Qty: 30 RF: 0 methocarbamol 750 mg tablet 750 mg PO Q6H PRN (Reason: muscle pain ) 7 Days Qty: 30 RF: 0 lorazepam [Ativan] 0.5 mg tablet 0.5 mg PO QHS PRN (Reason: anxiety) 5 Days Qty: 5 RF: 0 Continued PNV #[id number] 30 mg iron-10 mg iron-1 mg capsule 1 cap PO DAILY RF: 0 Discontinued betamethasone acet,sod phos [Celestone Soluspan] 6 mg/mL suspension 12 mg IM ONCE RF: 0 Referrals / Follow Up: Russell Mulligan DO [Primary Care Provider] - Disposition Disposition (needs filled in before D/C Order can be placed): Home, Self Care
[2021-08-29 10:16] LABS: Pathologist Review Reviewed
== END 2021-08-28 17:00 | disposition home or self-care (01) | DRG 784 ==
PROVIDERS: Nurse Practitioner Women's Health; Obstetrics & Gynecology; Admitting Provider Obstetrics & Gynecology; PCP Physician Assistant; Visit Provider Obstetrics & Gynecology
DX: O41.03X0 Oligohydramnios, third trimester, not applicable or unspecified (principal); O44.23 Partial placenta previa NOS or without hemorrhage, third trimester; O72.1 Other immediate postpartum hemorrhage; D50.0 Iron deficiency anemia secondary to blood loss (chronic); Z3A.36 36 weeks gestation of pregnancy; O90.81 Anemia of the puerperium; O34.219 Maternal care for unspecified type scar from previous cesarean delivery; Z37.0 Single live birth; Z30.2 Encounter for sterilization
CPT/HCPCS: 59050; 80307; 85014; 85018; 85025; 85027; 85384; 85461; 85610; 85730; 86703; 86762; 86780; 86803; 86850; 86900; 86901; 86920; 87340; 87426; 87491; 87591; 88302; 90384; 99218; J7050; J7120; A4216; G0378; J2405; J2790; J2916

== ENCOUNTER 2021-10-12 16:46 | Outpatient (CLI) | payer BC, SELFPAY ==
[2021-10-20 16:07] LABS: HPV APTIMA, High Risk Negative (Negative)
== END 2021-10-12 23:59 | disposition home or self-care (01) ==
LOC: LABSPEC 16:47
PROVIDERS: PCP Physician Assistant; Visit Provider Obstetrics & Gynecology
DX: Z12.4 Encounter for screening for malignant neoplasm of cervix (principal)
CPT/HCPCS: 87624; 88175; G0145